=== PATIENT | male | born 1950 | race Caucasian/White ===

== ENCOUNTER 2017-05-30 12:04 | Emergency (ER) | payer MEDICARE, MEDICAID ==
[~2017-05-30] VITALS: Ht 177.8 cm; Wt 99.9 kg
[~2017-05-30 12:04] MED LIST: METH40TA3 PO; TIOT18CA INH
[2017-05-30] MEDS ORDERED: TIOT4MIS3 INH (12:45)
[2017-05-30] MEDS ORDERED: SODIUM CHLORIDE FLUSH 10ML SYR IVF ONE (13:00)
[2017-05-30 13:03] LABS: HEMATOCRIT 36.4 % (39.2-51.8); HEMOGLOBIN 12.5 g/dL (13.7-18.0); WHITE BLOOD COUNT 5.6 x10^3/uL (3.4-10)
[2017-05-30 13:20] LABS: DIFF TOTAL CELLS COUNTED 100 CELL DIFF
[2017-05-30 13:22] LABS: ANISOCYTOSIS 1+; VERIFY COUNTS? YES
[2017-05-30 13:24] LABS: BLOOD UREA NITROGEN 9 mg/dL (7-18)
[2017-05-30 13:27] LABS: ASPARTATE AMINO TRANSFERASE 97 U/L (15-37)
[2017-05-30 13:56] VITALS: BP 128/81
== END 2017-05-30 15:55 | disposition home or self-care (01) ==
LOC: ED 14:34
DX: E80.6 Other disorders of bilirubin metabolism (principal); B19.20 Unspecified viral hepatitis C without hepatic coma; J44.9 Chronic obstructive pulmonary disease, unspecified
CPT/HCPCS: 36415; 80053; 81001; 82140; 83690; 85025; 85610; 85730; 87086; 87324; 99284